=== PATIENT | female | born 1940 | race Caucasian/White ===

== ENCOUNTER 2018-08-11 01:51 | Inpatient (IN) | payer OTHER ==
[2018-08-11 01:59] VITALS: BMI 24.5
--- NOTE | 2018-08-11 02:32 | PDOC ---
Attending Attestation - Resident Resident Name: Germaine Del Rosario - ED Attending Attestation I have performed the following: I have examined & evaluated the patient, The case was reviewed & discussed with the resident, I agree w/resident's findings & plan - HPI HPI: 08/11/18 05:40 Pt comes with coffee ground emesis Pt was sent for eval. - Physicial Exam PE: 08/11/18 06:11 Pt has soft abd; NT ND; no flank pain. No emesis at this time. She has no fever and no chills. Pt is resting comfortabley. She is confused, but oriented to person, not place or time - Medical Decision Making 08/12/18 01:32 Pt will be signed out to the day attending
--- NOTE | 2018-08-11 02:50 | PDOC ---
History of Present Illness - General Chief Complaint: Coffee Ground Emesis Stated Complaint: GI BLEED Time Seen by Provider: 08/11/18 02:03 - History of Present Illness Initial Comments: 08/11/18 02:47 Patient is a 77 year old female with past medical history of Dementia, Hypothyroidism, and Arthritis, BIBEMS from [facility] for coffee ground emesis and diarrhea. Patient is a poor historian due to dementia. Resident able to call [facility] and spoke with RN Abi. She reported patient was found to be vomiting large amount of dark, coffee ground components as well as having large loose watery foul-smelling stools with minimal dark blood. This was patient's first reported episode of vomiting and diarrhea. Patient was cleaned up and immediately brought to the ED by EMS who was at the facility at that time. Past History - Past Medical History Allergies/Adverse Reactions: Allergies Allergy/AdvReac Type Severity Reaction Status Date / Time No Known Allergies Allergy Verified 08/11/18 02:09 Home Medications: Ambulatory Orders Docusate Sodium [Colace] 100 mg PO DAILY 08/11/18 Levothyroxine [Synthroid -] 125 mcg PO DAILY 08/11/18 Metoprolol Succinate [Kapspargo Sprinkle] 25 mg PO DAILY 08/11/18 Naproxen 375 mg PO DAILY 08/11/18 Paroxetine HCl 20 mg PO DAILY 08/11/18 traZODone HCL [Trazodone HCl] 100 mg PO DAILY 08/11/18 COPD: No Dementia: Yes Other medical history: arthritis , hypothyroid - Suicide/Smoking/Psychosocial Hx Smoking History: Never smoked Have you smoked in the past 12 months: No Information on smoking cessation initiated: No Hx Alcohol Use: No Drug/Substance Use Hx: No *Physical Exam - Vital Signs Last Vital Signs Temp Pulse Resp BP Pulse Ox 98.6 F 61 18 139/65 99 08/11/18 01:57 08/11/18 01:57 08/11/18 01:57 08/11/18 01:57 08/11/18 01:57 - Physical Exam Comments: 08/11/18 02:52 General: somnolent, arousable to voice, not talking, smiling and laughing Head: no signs of head trauma HEENT: PERRLA, sclerae anicteric, no nasal discharge, dry mucous membranes Neck: soft, supple, trachea midline Lungs: clear to auscultation bilaterally Heart: regular rate and rhythm, normal S1/S2, no m,r,g Abdomen: soft, nontender, nondistended, NABS KRISTIE: +loose, foul, watery stools with minimal bright red blood, no hemorrhoids, masses or fissures appreciated Ext: +2 pulses, no peripheral edema, cyanosis or clubbing Moderate Sedation - Procedure Monitoring Vital Signs: Procedure Monitoring Vital Signs Temperature 98.6 F 08/11/18 01:57 Pulse Rate 61 08/11/18 01:57 Respiratory Rate 18 08/11/18 01:57 Blood Pressure 139/65 08/11/18 01:57 O2 Sat by Pulse Oximetry (%) 99 08/11/18 01:57 ED Treatment Course - LABORATORY CBC & Chemistry Diagram: 08/11/18 02:45 08/11/18 02:45 Medical Decision Making - Medical Decision Making 08/11/18 02:55 Patient is a 77 year old female BIBEMS from [facility] due to coffee ground emesis and diarrhea. DDX include but not limited to UGIB vs LGIB CBC, CMP, coags Stool occult 08/11/18 05:37 WBC - 13.9' Stool occult positive *DC/Admit/Observation/Transfer Diagnosis at time of Disposition: GI bleed Qualifiers: GI bleed type/associated pathology: unspecified gastrointestinal hemorrhage type Qualified Code(s): K92.2 - Gastrointestinal hemorrhage, unspecified - Discharge Dispostion Condition at time of disposition: Stable Decision to Admit order: Yes - Referrals - Patient Instructions - Post Discharge Activity
[2018-08-11 02:51] LABS: BASO % 0.1 % (0-2.0); EOS % 0.9 % (0-4.5); HEMATOCRIT 40.6 % (32.4-45.2); HEMOGLOBIN 13.6 GM/dL (10.7-15.3); LYMPH % 5.1 % (8-40); MCH 31.2 pg (25.7-33.7); MCHC 33.6 g/dl (32.0-36.0); MEAN PLT VOLUME 8.3 fl (7.5-11.1); MONO % 5.1 % (3.8-10.2); NEUT % 88.8 % (42.8-82.8); PLATELET COUNT 223 K/MM3 (134-434); RBC 4.37 M/mm3 (3.60-5.2); RDW 13.4 % (11.6-15.6); WHITE BLOOD COUNT 13.4 K/mm3 (4.0-10.0)
[2018-08-11 03:08] LABS: INR 0.99 (0.83-1.09); PROTHROMBIN TIME (PATIENT) 11.7 SEC (9.7-13.0)
[2018-08-11 03:18] LABS: ALBUMIN 3.2 g/dl (3.4-5.0); ALK PHOS 57 U/L (45-117); ANION GAP 9 MMOL/L (8-16); BILIRUBIN,TOTAL 0.3 mg/dL (0.2-1); BLOOD UREA NITROGEN 26 mg/dL (7-18); CALCIUM 8.7 mg/dL (8.5-10.1); CHLORIDE 110 mmol/L (98-107); CO2 25 mmol/L (21-32); CREATININE 0.9 mg/dL (0.55-1.3); GLUCOSE,RANDOM 132 mg/dL (74-106); POTASSIUM 4.2 mmol/L (3.5-5.1); SGOT/AST 14 U/L (15-37); SGPT/ALT 17 U/L (13-61); SODIUM 143 mmol/L (136-145); TOT PROT 6.6 g/dl (6.4-8.2)
[2018-08-11 06:14] LABS: URINE APPEARANCE CLEAR; URINE BILIRUBIN NEGATIVE (<2.0 mg/dL); URINE COLOR YELLOW; URINE GLUCOSE (UA) NEGATIVE (NEGATIVE); URINE KETONE NEGATIVE (NEGATIVE); URINE LEUK ESTERASE NEGATIVE (NEGATIVE); URINE NITRITE NEGATIVE (NEGATIVE); URINE PROTEIN NEGATIVE (NEGATIVE); URINE UROBILINOGEN NEGATIVE mg/dL (0.2-1.0)
--- NOTE | 2018-08-11 06:26 | HP ---
CHIEF COMPLAINT:GI bleed PCP: HISTORY OF PRESENT ILLNESS: 77 y/o female with PMH of dementia, hypothyroidism, HLD, arthritis, was [facility] her [facility] to [facility] ED after being found to have an episode of coffee ground emesis and also diarrhea mixed with blood;. Patient is a poor historian due to dementia, and could not provide a history as to why she is in the hospital, nor do we know if this has ever happened to her in the past. Of note, patient does take naproxen but not could specify as to how often she takes it. however when asked if she is in any pain she denies. Upon arrival to the ER patient has not had anymore episodes of vomiting, however, did have more episodes of diarrhea. IN addition, patient was also found to have malodorous urine so cultures were sent. ER course was notable for: (1)Hgb was 13.6- unchanged from previous admissions (2)vital signs stable; no tachycardia or hypotension (3)KRISTIE done - fecal occult blood positive Recent Travel: PAST MEDICAL HISTORY: see above PAST SURGICAL HISTORY: unknown Social History:unable to obtain Smoking: Alcohol: Drugs: Family History: Allergies No Known Allergies Allergy (Verified 08/11/18 02:09) HOME MEDICATIONS: Home Medications Medication Instructions Recorded Docusate Sodium [Colace] 100 mg PO DAILY 08/11/18 Levothyroxine [Synthroid -] 125 mcg PO DAILY 08/11/18 Metoprolol Succinate [Kapspargo 25 mg PO DAILY 08/11/18 Sprinkle] Naproxen 375 mg PO DAILY 08/11/18 Paroxetine HCl 20 mg PO DAILY 08/11/18 traZODone HCL [Trazodone HCl] 100 mg PO DAILY 08/11/18 REVIEW OF SYSTEMS- unable to obtain however patient denies any pain CONSTITUTIONAL: Absent: fever, chills, diaphoresis, generalized weakness, malaise, loss of appetite, weight change HEENT: Absent: rhinorrhea, nasal congestion, throat pain, throat swelling, difficulty swallowing, mouth swelling, ear pain, eye pain, visual changes CARDIOVASCULAR: Absent: chest pain, syncope, palpitations, irregular heart rate, lightheadedness , peripheral edema RESPIRATORY: Absent: cough, shortness of breath, dyspnea with exertion, orthopnea, wheezing, stridor, hemoptysis GASTROINTESTINAL: Absent: abdominal pain, abdominal distension, nausea, vomiting, diarrhea, constipation, melena, hematochezia GENITOURINARY: Absent: dysuria, frequency, urgency, hesitancy, hematuria, flank pain, genital pain MUSCULOSKELETAL: Absent: myalgia, arthralgia, joint swelling, back pain, neck pain SKIN: Absent: rash, itching, pallor HEMATOLOGIC/IMMUNOLOGIC: Absent: easy bleeding, easy bruising, lymphadenopathy, frequent infections ENDOCRINE: Absent: unexplained weight gain, unexplained weight loss, heat intolerance, cold intolerance NEUROLOGIC: Absent: headache, focal weakness or paresthesias, dizziness, unsteady gait, seizure, mental status changes, bladder or bowel incontinence PSYCHIATRIC: Absent: anxiety, depression, suicidal or homicidal ideation, hallucinations. PHYSICAL EXAMINATION Vital Signs - 24 hr 08/11/18 08/11/18 01:57 06:07 Temperature 98.6 F 98.9 F Pulse Rate 61 Pulse Rate [ 90 Right Radial] Respiratory 18 20 Rate Blood Pressure 139/65 Blood Pressure 164/64 [Right Arm] O2 Sat by Pulse 99 99 Oximetry (%) GENERAL: Awake, alert, and fully oriented, in no acute distress. EYES: no scleral icterus NECK: no JVD no lymphadenopathy LUNGS:CTA B/L; no rales, rhonchi or wheezing HEART: Regular rate and rhythm, normal S1 and S2 without murmur, rub or gallop. ABDOMEN: Soft, nontender, not distended, normoactive bowel sounds, no guarding, no rebound, no masses. No hepatomegaly or splenomegaly. MUSCULOSKELETAL: Normal range of motion at all joints. No bony deformities or tenderness. No CVA tenderness. EXTREMITIES: warm; well-perfused, no clubbing/cyanosis or edema NEUROLOGICAL: Cranial nerves II-XII intact. Normal speech. Normal gait. PSYCHIATRIC: Cooperative. Good eye contact. Appropriate mood and affect. SKIN: Warm, dry, normal turgor, no rashes or lesions noted, normal capillary refill. Laboratory Results - last 24 hr 08/11/18 08/11/18 08/11/18 02:45 02:45 02:45 WBC 13.4 H RBC 4.37 Hgb 13.6 Hct 40.6 MCV 93.0 MCH 31.2 MCHC 33.6 RDW 13.4 Plt Count 223 MPV 8.3 Absolute Neuts (auto) 11.9 H Neutrophils % 88.8 H Lymphocytes % 5.1 L Monocytes % 5.1 Eosinophils % 0.9 Basophils % 0.1 Nucleated RBC % 0 PT with INR 11.70 INR 0.99 Sodium 143 Potassium 4.2 Chloride 110 H Carbon Dioxide 25 Anion Gap 9 BUN 26 H Creatinine 0.9 Creat Clearance w eGFR > 60 Random Glucose 132 H Calcium 8.7 Total Bilirubin 0.3 AST 14 L ALT 17 Alkaline Phosphatase 57 Total Protein 6.6 Albumin 3.2 L Stool Occult Blood 08/11/18 02:45 WBC RBC Hgb Hct MCV MCH MCHC RDW Plt Count MPV Absolute Neuts (auto) Neutrophils % Lymphocytes % Monocytes % Eosinophils % Basophils % Nucleated RBC % PT with INR INR Sodium Potassium Chloride Carbon Dioxide Anion Gap BUN Creatinine Creat Clearance w eGFR Random Glucose Calcium Total Bilirubin AST ALT Alkaline Phosphatase Total Protein Albumin Stool Occult Blood Positive ASSESSMENT/PLAN: 77 y/o female with PMH dementia, hypothyroidism, HLD was sent in from her [facility] and found to have an episodes of coffee ground emesis and diarrhea mixed with blood. #GI bleed possibly 2/2 naproxen use -fecal occult blood positive -GI consulted; Dr Grey -Protonix 40 BID -CBC q12H -monitor hemodynamics -monitor Hgb #Hypothyroidism -TSH level pending -c/w home dose of synthroid Code: DNR/DNI F/E/N not on fluids monitor electrolytes DV PPX: SCDS
[2018-08-11 08:22] LABS: HEMATOCRIT 40.7 % (32.4-45.2); HEMOGLOBIN 13.1 GM/dL (10.7-15.3); MCH 29.9 pg (25.7-33.7); MCHC 32.2 g/dl (32.0-36.0); MEAN CELL VOLUME 92.7 fl (80-96); MEAN PLT VOLUME 8.3 fl (7.5-11.1); PLATELET COUNT 206 K/MM3 (134-434); RBC 4.39 M/mm3 (3.60-5.2); RDW 13.2 % (11.6-15.6); WHITE BLOOD COUNT 10.3 K/mm3 (4.0-10.0)
--- NOTE | 2018-08-11 08:46 | PN ---
Progress Note, Physician Chief Complaint: Difficult to obtain secondary to dementia. Only says her stomach feels "not to good" but cannot otherwise specify. Will not speak further at this time. - Current Medication List Current Medications: Active Medications Sodium Chloride (Normal Saline -) 1,000 mls @ 42 mls/hr IV ASDIR [facility] Levothyroxine Sodium (Synthroid -) 125 mcg PO DAILY@0700 [facility] Non-Formulary Medication (Metoprolol Succinate [Kapspargo Sprinkle]) 25 mg PO DAILY [facility] Pantoprazole Sodium (Protonix -) 40 mg PO BID [facility] Paroxetine HCl (Paxil -) 20 mg PO DAILY [facility] Trazodone HCl (Desyrel -) 100 mg PO HS [facility] - Objective Vital Signs: Vital Signs Temperature 37.2 C 08/11/18 08:18 Pulse Rate 74 08/11/18 08:18 Respiratory Rate 16 08/11/18 08:18 Blood Pressure 134/90 08/11/18 08:18 O2 Sat by Pulse Oximetry (%) 99 08/11/18 08:18 Constitutional: Yes: Well Nourished, No Distress, Calm Cardiovascular: Yes: Regular Rate and Rhythm. No: Gallop, Murmur, Rub Respiratory: Yes: Regular, CTA Bilaterally. No: Rales, Rhonchi, Wheezes Gastrointestinal: Yes: Normal Bowel Sounds, Soft. No: Distention, Tenderness Extremities: Yes: WNL Edema: No Labs: CBC, BMP 08/11/18 08:00 08/11/18 02:45 INR, PTT INR 0.99 (0.83-1.09) 08/11/18 02:45 Problem List - Problems (1) GI bleed Assessment/Plan: -suspect UGIB -GI consulted -gentle hydration -continue bid protonix -H/H stable -will place on clear liquid diet -reviewed patient's wishes in chart, DNR/DNI, no feeding tube, no antibiotics -suspect patient would not want intervention like EGD/colonoscopy -conservative management currently -call placed to niece who is POA, no answer -hold NSAIDs, most likely cause of GI bleed Code(s): K92.2 - GASTROINTESTINAL HEMORRHAGE, UNSPECIFIED Qualifiers: GI bleed type/associated pathology: unspecified gastrointestinal hemorrhage type Qualified Code(s): K92.2 - Gastrointestinal hemorrhage, unspecified (2) Dementia Assessment/Plan: -continue trazadone and paxil Code(s): F03.90 - UNSPECIFIED DEMENTIA WITHOUT BEHAVIORAL DISTURBANCE (3) Hypothyroid Assessment/Plan: -continue synthroid Code(s): E03.9 - HYPOTHYROIDISM, UNSPECIFIED (4) HTN (hypertension) Assessment/Plan: -continue metoprolol Code(s): I10 - ESSENTIAL (PRIMARY) HYPERTENSION
[2018-08-11] MEDS: LEVOTHYROXINE NA 125 MCG TABLET (FP) PO SCH (09:24)
[2018-08-11] MEDS: PANTOPRAZOLE 40 MG TABLET (FP) PO SCH ×2 (09:24→21:13)
[2018-08-11] MEDS: metoPROLOL SUCCINATE 25 MG TAB.SR.24H (FP) PO SCH (09:24)
[2018-08-11] MEDS: PARoxetine HCL 20 MG TABLET (FP) PO SCH (09:24)
[2018-08-11] MEDS ORDERED: METOPROLOL SUCCINATE 25 MG PO SCH (10:00)
[2018-08-11] MEDS: SODIUM CHLORIDE 1,000 ML IV SCH (10:04)
--- NOTE | 2018-08-11 10:47 | CON.GI ---
Consult Consult Specialty:: GI: For Dr. Grye Referred by:: Dr. Jamey Jacob Reason for Consultation:: Coffee Ground emesis - History of Present Illness Chief Complaint: Patient gives no focal complaints: history of dementia History of Present Illness: 77F admitted for evaluation of coffee ground emesis, diarrhea and foul smelling urine from [place]. Niece present. She bbelieves that he aunt hs a history of constipation and when she was admitted at [facility] lst year, may have had colonoscopy. There is no family history of colorectal cancer or other GI malignancy. There has been no diarrhea, rectal bleeding or further vomiting. She is maintained on naproxen daily per her home medication list. 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 History of Recent Travel: No Home Medications - Allergies Allergies/Adverse Reactions: Allergies Allergy/AdvReac Type Severity Reaction Status Date / Time No Known Allergies Allergy Verified 08/11/18 02:09 - Home Medications Home Medications: Ambulatory Orders Docusate Sodium [Colace] 100 mg PO DAILY 08/11/18 Levothyroxine [Synthroid -] 125 mcg PO DAILY 08/11/18 Metoprolol Succinate [Kapspargo Sprinkle] 25 mg PO DAILY 08/11/18 Naproxen 375 mg PO DAILY 08/11/18 Paroxetine HCl 20 mg PO DAILY 08/11/18 traZODone HCL [Trazodone HCl] 100 mg PO DAILY 08/11/18 Physical Exam-GI Vital Signs: Vital Signs Temperature 98.9 F 08/11/18 08:18 Pulse Rate 74 08/11/18 08:18 Respiratory Rate 16 08/11/18 08:18 Blood Pressure 134/90 08/11/18 08:18 O2 Sat by Pulse Oximetry (%) 99 08/11/18 08:18 Constitutional: Yes: Calm Eyes: No: Sclera Icterus Cardiovascular: Yes: Regular Rate and Rhythm Respiratory: Yes: Diminished (at bases with poor insp effort) Gastrointestinal Inspection: No: Distention, Scars ...Auscultate: Yes: Normoactive Bowel Sounds ...Palpate: No: Hepatomegaly, Splenomegaly, Tenderness ...Percussion: No: Tympanitic ...Rectal Exam: Yes: Other (No external lesions, no masses, no blood/stool) Edema: No (No LE edema) Neurological: Yes: Alert Labs: CBC, BMP 08/11/18 08:00 08/11/18 02:45 INR, PTT INR 0.99 (0.83-1.09) 08/11/18 02:45 Hepatic Panel Total Bilirubin 0.3 mg/dL (0.2-1) 08/11/18 02:45 AST 14 U/L (15-37) L 08/11/18 02:45 ALT 17 U/L (13-61) 08/11/18 02:45 Alkaline Phosphatase 57 U/L (45-117) 08/11/18 02:45 Albumin 3.2 g/dl (3.4-5.0) L 08/11/18 02:45 Problem List - Problems (1) GI bleed Assessment/Plan: No overt bleeding with stable H/H. Would continue to monitor. Advanced to clears today...can advance to fulls if tolerating then to regular diet and observe. Would stop standing NSAID use. Continuie Protonix 20mg once daily. If no overt bleeding / vomiting / diarrhea, no objection to D/C home. If continued coffee ground vomiting, melena, dwindling H/H, upper endoscopy would need to be considered on Monday If diarrhea, check stool for C. Diff, )&P, culture Code(s): K92.2 - GASTROINTESTINAL HEMORRHAGE, UNSPECIFIED Qualifiers: GI bleed type/associated pathology: unspecified gastrointestinal hemorrhage type Qualified Code(s): K92.2 - Gastrointestinal hemorrhage, unspecified (2) Constipation Assessment/Plan: History of significant constipation per patient's niece: recommend MiraLAX 17g once daily when diarrhea subsides Discussed plan with patient's niece Code(s): K59.00 - CONSTIPATION, UNSPECIFIED
[2018-08-11 12:02] LABS: HEMATOCRIT 37.8 % (32.4-45.2); HEMOGLOBIN 13.1 GM/dL (10.7-15.3); MCH 31.7 pg (25.7-33.7); MCHC 34.6 g/dl (32.0-36.0); MEAN CELL VOLUME 91.6 fl (80-96); MEAN PLT VOLUME 8.3 fl (7.5-11.1); PLATELET COUNT 216 K/MM3 (134-434); RBC 4.13 M/mm3 (3.60-5.2); RDW 13.3 % (11.6-15.6); WHITE BLOOD COUNT 8.4 K/mm3 (4.0-10.0)
[2018-08-11] MEDS ORDERED: PNEUMOC 13-VAL CONJ-DIP CRM/PF 0.5 ML DISP.SYRIN IM ONE (13:00)
[2018-08-11 18:30] LABS: HEMATOCRIT 35.6 % (32.4-45.2); HEMOGLOBIN 12.2 GM/dL (10.7-15.3); MCH 31.4 pg (25.7-33.7); MCHC 34.3 g/dl (32.0-36.0); MEAN CELL VOLUME 91.7 fl (80-96); MEAN PLT VOLUME 8.5 fl (7.5-11.1); PLATELET COUNT 201 K/MM3 (134-434); RBC 3.88 M/mm3 (3.60-5.2); RDW 13.5 % (11.6-15.6); WHITE BLOOD COUNT 6.5 K/mm3 (4.0-10.0)
[2018-08-11] MEDS ORDERED: traZODone HCL 50 MG TABLET (FP) ONE (20:43)
[2018-08-11] MEDS: traZODone HCL 100 MG TABLET (FP) PO SCH (21:13)
[2018-08-12] MEDS: LEVOTHYROXINE NA 125 MCG TABLET (FP) PO SCH (06:05)
[2018-08-12 07:41] LABS: HEMATOCRIT 34.6 % (32.4-45.2); HEMOGLOBIN 12.1 GM/dL (10.7-15.3); MEAN CELL VOLUME 91.4 fl (80-96); MEAN PLT VOLUME 8.3 fl (7.5-11.1); PLATELET COUNT 199 K/MM3 (134-434); RBC 3.79 M/mm3 (3.60-5.2); RDW 13.2 % (11.6-15.6)
[2018-08-12 07:54] LABS: INR 1.12 (0.83-1.09); PROTHROMBIN TIME (PATIENT) 13.2 SEC (9.7-13.0)
[2018-08-12 07:57] LABS: ACTIVATED PTT 25.5 SECONDS (25.2-36.5)
[2018-08-12 08:20] LABS: ALBUMIN 2.5 g/dl (3.4-5.0); ALK PHOS 45 U/L (45-117); ANION GAP 5 MMOL/L (8-16); BILIRUBIN,TOTAL 0.3 mg/dL (0.2-1); BLOOD UREA NITROGEN 10 mg/dL (7-18); CALCIUM 7.7 mg/dL (8.5-10.1); CHLORIDE 112 mmol/L (98-107); CO2 26 mmol/L (21-32); CREATININE 0.7 mg/dL (0.55-1.3); GLUCOSE,RANDOM 84 mg/dL (74-106); PHOSPHOROUS 2.2 mg/dL (2.5-4.9); POTASSIUM 3.6 mmol/L (3.5-5.1); SGOT/AST 18 U/L (15-37); SGPT/ALT 14 U/L (13-61); SODIUM 143 mmol/L (136-145); TOT PROT 5.4 g/dl (6.4-8.2)
--- NOTE | 2018-08-12 09:32 | PN ---
Progress Note, Physician Chief Complaint: Difficult to obtain secondary to dementia. Patient only said yes to me and did not speak further. - Current Medication List Current Medications: Active Medications Sodium Chloride (Normal Saline -) 1,000 mls @ 42 mls/hr IV ASDIR [facility] Last Admin: 08/11/18 10:04 Dose: 42 mls/hr Levothyroxine Sodium (Synthroid -) 125 mcg PO DAILY@0700 [facility] Last Admin: 08/12/18 06:05 Dose: 125 mcg Metoprolol Succinate (Toprol Xl -) [address] [facility] Last Admin: 08/11/18 09:24 Dose: 25 mg Pantoprazole Sodium (Protonix -) [address] [facility] Last Admin: 08/11/18 21:13 Dose: 40 mg Paroxetine HCl (Paxil -) [address] [facility] Last Admin: 08/11/18 09:24 Dose: 20 mg Trazodone HCl (Desyrel -) [address] [facility] Last Admin: 08/11/18 21:13 Dose: 100 mg - Objective Vital Signs: Vital Signs Temperature 36.6 C 08/12/18 08:20 Pulse Rate 65 08/12/18 08:20 Respiratory Rate 16 08/12/18 08:20 Blood Pressure 155/66 08/12/18 08:20 O2 Sat by Pulse Oximetry (%) 98 08/12/18 06:00 Constitutional: Yes: Well Nourished, No Distress, Calm Cardiovascular: Yes: Regular Rate and Rhythm. No: Gallop, Murmur, Rub Respiratory: Yes: Regular, CTA Bilaterally. No: Rales, Rhonchi, Wheezes Extremities: Yes: WNL Edema: No Labs: CBC, BMP 08/12/18 07:00 08/12/18 07:00 INR, PTT INR 1.12 (0.83-1.09) H 08/12/18 07:00 Problem List - Problems (1) GI bleed Code(s): K92.2 - GASTROINTESTINAL HEMORRHAGE, UNSPECIFIED Qualifiers: GI bleed type/associated pathology: unspecified gastrointestinal hemorrhage type Qualified Code(s): K92.2 - Gastrointestinal hemorrhage, unspecified (2) Dementia Code(s): F03.90 - UNSPECIFIED DEMENTIA WITHOUT BEHAVIORAL DISTURBANCE (3) Hypothyroid Code(s): E03.9 - HYPOTHYROIDISM, UNSPECIFIED (4) HTN (hypertension) Code(s): I10 - ESSENTIAL (PRIMARY) HYPERTENSION Assessment/Plan (1) GI bleed Assessment/Plan: -H/H stable -will advance diet to full today and regular this evening -if tolerates, plan for discharge tomorrow -will discharge on 14 days of bid protonix then protonix daily for 30 days -to be re-evaluated if needs continuous protonix as an outpatient Code(s): K92.2 - GASTROINTESTINAL HEMORRHAGE, UNSPECIFIED Qualifiers: GI bleed type/associated pathology: unspecified gastrointestinal hemorrhage type Qualified Code(s): K92.2 - Gastrointestinal hemorrhage, unspecified (2) Dementia Assessment/Plan: -continue trazadone and paxil Code(s): F03.90 - UNSPECIFIED DEMENTIA WITHOUT BEHAVIORAL DISTURBANCE (3) Hypothyroid Assessment/Plan: -continue synthroid Code(s): E03.9 - HYPOTHYROIDISM, UNSPECIFIED (4) HTN (hypertension) Assessment/Plan: -continue metoprolol Code(s): I10 - ESSENTIAL (PRIMARY) HYPERTENSION
[2018-08-12] MEDS: PANTOPRAZOLE 40 MG TABLET (FP) PO SCH ×2 (10:15→21:22)
[2018-08-12] MEDS: metoPROLOL SUCCINATE 25 MG TAB.SR.24H (FP) PO SCH (10:15)
[2018-08-12] MEDS: SODIUM CHLORIDE 1,000 ML IV SCH (10:15)
[2018-08-12] MEDS: PARoxetine HCL 20 MG TABLET (FP) PO SCH (10:15)
--- NOTE | 2018-08-12 12:22 | EKG ---
Test Reason : Blood Pressure : / mmHG Vent. Rate : 067 BPM Atrial Rate : 067 BPM P-R Int : 240 ms QRS Dur : 142 ms QT Int : 436 ms P-R-T Axes : 067 046 017 degrees QTc Int : 460 ms SINUS RHYTHM WITH 1ST DEGREE A-V BLOCK POSSIBLE LEFT ATRIAL ENLARGEMENT LEFT BUNDLE BRANCH BLOCK ABNORMAL ECG NO PREVIOUS ECGS AVAILABLE Confirmed by RAVEN NEWELL MD ([id number]) on 08/12/2018 12:22:41 PM Referred By: Confirmed By:RAVEN NEWELL MD
[2018-08-12] MEDS ORDERED: ACETAMINOPHEN 325 MG TABLET (FP) PO PRN (17:12)
[2018-08-12] MEDS ORDERED: traZODone HCL 50 MG TABLET (FP) ONE (20:56)
[2018-08-12] MEDS: traZODone HCL 100 MG TABLET (FP) PO SCH (21:22)
[2018-08-13] MEDS: LEVOTHYROXINE NA 125 MCG TABLET (FP) PO SCH (06:19)
[2018-08-13] MEDS ORDERED: PT OWN MED DRAWER 7, Y5N ONE (06:36)
[2018-08-13 07:20] LABS: HEMATOCRIT 36.3 % (32.4-45.2); HEMOGLOBIN 11.9 GM/dL (10.7-15.3); MCH 30.1 pg (25.7-33.7); MCHC 32.9 g/dl (32.0-36.0); MEAN CELL VOLUME 91.4 fl (80-96); MEAN PLT VOLUME 8.2 fl (7.5-11.1); PLATELET COUNT 196 K/MM3 (134-434); RBC 3.97 M/mm3 (3.60-5.2); RDW 12.9 % (11.6-15.6); WHITE BLOOD COUNT 6.4 K/mm3 (4.0-10.0)
[2018-08-13] MEDS: SODIUM CHLORIDE 1,000 ML IV SCH (10:14)
[2018-08-13] MEDS: metoPROLOL SUCCINATE 25 MG TAB.SR.24H (FP) PO SCH (10:15)
[2018-08-13] MEDS: PANTOPRAZOLE 40 MG TABLET (FP) PO SCH (10:15)
[2018-08-13] MEDS: PARoxetine HCL 20 MG TABLET (FP) PO SCH (10:15)
--- NOTE | 2018-08-13 11:09 | DS ---
Physical Examination Vital Signs: Vital Signs Temperature 36.7 C 08/13/18 08:47 Pulse Rate 53 L 08/13/18 08:47 Respiratory Rate 20 08/13/18 08:47 Blood Pressure 186/81 H 08/13/18 08:47 O2 Sat by Pulse Oximetry (%) 98 08/12/18 21:00 Constitutional: Yes: Well Nourished, No Distress, Calm Cardiovascular: Yes: Regular Rate and Rhythm. No: Gallop, Murmur, Rub Respiratory: Yes: Regular, CTA Bilaterally. No: Rales, Rhonchi, Wheezes Gastrointestinal: Yes: Normal Bowel Sounds, Soft. No: Distention, Tenderness Extremities: Yes: WNL Edema: No Labs: CBC, BMP 08/13/18 06:30 08/12/18 07:00 Discharge Summary Reason For Visit: GI BLEED Current Active Problems Constipation (Acute) Dementia (Acute) GI bleed (Acute) HTN (hypertension) (Acute) Hypothyroid (Acute) Hospital Course: (1) GI bleed Code(s): K92.2 - GASTROINTESTINAL HEMORRHAGE, UNSPECIFIED Qualifiers: GI bleed type/associated pathology: unspecified gastrointestinal hemorrhage type Qualified Code(s): K92.2 - Gastrointestinal hemorrhage, unspecified (2) Dementia Code(s): F03.90 - UNSPECIFIED DEMENTIA WITHOUT BEHAVIORAL DISTURBANCE (3) Hypothyroid Code(s): E03.9 - HYPOTHYROIDISM, UNSPECIFIED (4) HTN (hypertension) Code(s): I10 - ESSENTIAL (PRIMARY) HYPERTENSION Ms Fernandez is a very pleasant 77 year old female with dementia who presents with GI bleeding. She had one episode of coffee ground emesis at her [facility] and she was sent in. Here she was found to be guaiac positive and admitted to the hospital. She was not anemic and remind this way. She had no further episodes of coffee ground emesis while here. She was on naproxen as an outpatient, this is the cause of her GI bleed. Her wishes were reviewed and she was placed on conservative management. She was at first npo and placed on bid oral protonix, her diet was advanced and she tolerated this without problem. Case was discussed with her niece who is her healthcare proxy and she agreed with this. Currently she is safe for discharge back to [facility]. Patient should not be placed on NSAIDs unless there is a compelling medical reason to use this class of medications. She will be sent out on 30 days of protonix, at that time she should be re-evaluated by her PCP to see if these need to be continued. 32 minutes spent in preparation of this discharge Condition: Stable - Instructions Diet, Activity, Other Instructions: resume previous diet and activity. Do not use NSAIDs for pain control. Use protonix 40mg bid for 2 weeks then 40mg daily. Re-evaluate continued need for protonix after 30 days. Referrals: Vilma Fernandes [Primary Care Provider] - Disposition: HOME - Home Medications Comprehensive Discharge Medication List: Ambulatory Orders Docusate Sodium [Colace] 100 mg PO DAILY 08/11/18 Levothyroxine [Synthroid -] 125 mcg PO DAILY 08/11/18 Metoprolol Succinate [Kapspargo Sprinkle] 25 mg PO DAILY 08/11/18 Paroxetine HCl 20 mg PO DAILY 08/11/18 traZODone HCL [Trazodone HCl] 100 mg PO DAILY 08/11/18 Pantoprazole Sodium [Protonix -] 40 mg PO BID #60 tablet.ec 08/13/18
[2018-08-13 14:50] VITALS: BP 158/65; PULSE 55; TEMP 97.8
== END 2018-08-13 16:17 | disposition home or self-care (01) | DRG 379 ==
LOC: JER 01:51 → JERBED 05:52 → J6S 06:36
PROVIDERS: ADMIT Internal Medicine; ATTEND Internal Medicine
DX: K92.2 Gastrointestinal hemorrhage, unspecified (principal); E03.9 Hypothyroidism, unspecified; E78.5 Hyperlipidemia, unspecified; F03.90 Unspecified dementia, unspecified severity, without behavioral disturbance, psychotic disturbance, mood disturbance, and anxiety; K59.00 Constipation, unspecified; I10 Essential (primary) hypertension
CPT/HCPCS: 36415; 80053; 81003; 82272; 83735; 84100; 84443; 85025; 85027; 85610; 85730; 90670; 93005; 93010; 99283-25; J7030